=== PATIENT | male | born 1940 | race Caucasian/White ===

== ENCOUNTER 2016-02-24 07:42 | Day surgery (SDC) | payer OTHER ==
[2016-02-24] MEDS ORDERED: diphenhydrAMINE HCL 25 MG CAPSULE (FP) PO ONE (08:45)
[2016-02-24] MEDS ORDERED: ACETAMINOPHEN 325 MG TABLET (FP) PO ONE (08:45)
[2016-02-24] MEDS ORDERED: IMMUN GLOB G(IGG)/PRO/IGA 0-50 40 GM IVPB ONE (09:00)
[2016-02-24 13:33] VITALS: BP 123/70; PULSE 71; TEMP 97.3; BMI 27.3
== END 2016-02-24 13:41 | disposition home or self-care (01) ==
LOC: JINFUSION 07:42 → J7W 07:43 → JINFUSION 13:41
PROVIDERS: ATTEND Psychiatry & Neurology Neurology
DX: G62.89 Other specified polyneuropathies (principal)
CPT/HCPCS: 96365; 96366; J1459

== ENCOUNTER 2016-02-25 08:49 | Day surgery (SDC) | payer OTHER ==
[2016-02-25] MEDS ORDERED: ACETAMINOPHEN 325 MG TABLET (FP) ONE (09:12)
[2016-02-25] MEDS ORDERED: diphenhydrAMINE HCL 25 MG CAPSULE (FP) PO ONE (09:30)
[2016-02-25] MEDS ORDERED: ACETAMINOPHEN 325 MG TABLET (FP) PO ONE (09:30)
[2016-02-25] MEDS ORDERED: IMMUN GLOB G(IGG)/PRO/IGA 0-50 40 GM IVPB ONE (10:00)
[2016-02-25 14:30] VITALS: BP 113/70; BMI 27.3
[2016-02-25 14:33] VITALS: PULSE 65; TEMP 98.3
== END 2016-02-25 14:18 | disposition home or self-care (01) ==
LOC: JINFUSION 08:49 → J7W 08:49 → JINFUSION 14:18
PROVIDERS: ATTEND Psychiatry & Neurology Neurology
DX: G62.89 Other specified polyneuropathies (principal)
CPT/HCPCS: 96365; 96366; J1459

== ENCOUNTER 2016-02-26 07:51 | Day surgery (SDC) | payer OTHER ==
[2016-02-26] MEDS ORDERED: diphenhydrAMINE HCL 25 MG CAPSULE (FP) PO ONE (08:30)
[2016-02-26] MEDS ORDERED: ACETAMINOPHEN 325 MG TABLET (FP) PO ONE (08:30)
[2016-02-26] MEDS ORDERED: IMMUN GLOB G(IGG)/PRO/IGA 0-50 40 GM IVPB ONE (09:00)
== END 2016-02-26 12:59 | disposition home or self-care (01) ==
LOC: JINFUSION 07:51 → J7W 07:52 → JINFUSION 12:59
PROVIDERS: ATTEND Psychiatry & Neurology Neurology
DX: G62.89 Other specified polyneuropathies (principal)
CPT/HCPCS: 96365; 96366; J1459

== ENCOUNTER 2016-04-06 09:34 | Day surgery (SDC) | payer OTHER ==
[2016-04-03 13:20] VITALS: BMI 26.7
[2016-04-06] MEDS ORDERED: diphenhydrAMINE HCL 25 MG CAPSULE (FP) PO SCH (10:00)
[2016-04-06] MEDS ORDERED: ACETAMINOPHEN 325 MG TABLET (FP) PO SCH (10:15)
[2016-04-06] MEDS ORDERED: ACETAMINOPHEN 325 MG TABLET (FP) ONE ×3 (10:40→10:47)
[2016-04-06] MEDS ORDERED: IMMUNE GLOB,GAM CAPRYLATE(IGG) 40 GM IVPB ONE (10:45)
[2016-04-06 16:19] VITALS: BP 126/71; PULSE 62
[2016-04-06 16:20] VITALS: TEMP 97.7
== END 2016-04-06 16:15 | disposition home or self-care (01) ==
LOC: JINFUSION 09:34
PROVIDERS: ATTEND Psychiatry & Neurology Neurology
DX: G62.89 Other specified polyneuropathies (principal)
CPT/HCPCS: 96365; 96366; J1459

== ENCOUNTER 2016-04-07 09:02 | Day surgery (SDC) | payer OTHER ==
[2016-04-07 09:11] VITALS: BMI 27.3
[2016-04-07] MEDS ORDERED: diphenhydrAMINE HCL 25 MG CAPSULE (FP) PO ONE ×2 (10:00→15:05)
[2016-04-07] MEDS ORDERED: IMMUNE GLOB,GAM CAPRYLATE(IGG) 40 GM IVPB ONE (10:00)
[2016-04-07] MEDS ORDERED: ACETAMINOPHEN 325 MG TABLET (FP) PO ONE (10:00)
[2016-04-07 14:18] VITALS: BP 117/70; PULSE 70; TEMP 97.7
[2016-04-07] MEDS ORDERED: ACETAMINOPHEN 325 MG TABLET (FP) ONE (15:06)
== END 2016-04-07 14:05 | disposition home or self-care (01) ==
LOC: JASU-ENDO 09:02 → JINFUSION 09:02 → JASU-ENDO 14:05
PROVIDERS: ATTEND Psychiatry & Neurology Neurology
DX: G62.89 Other specified polyneuropathies (principal)
CPT/HCPCS: 96365; 96366; J1561; J1459

== ENCOUNTER 2016-04-08 08:33 | Day surgery (SDC) | payer OTHER ==
[~2016-04-08 08:33] MED LIST: ACETAMINOPHEN 325 MG TABLET (FP) PO ONE; diphenhydrAMINE HCL 25 MG CAPSULE (FP) PO ONE
[2016-04-08] MEDS ORDERED: ACETAMINOPHEN 325 MG TABLET (FP) ONE (08:45)
[2016-04-08] MEDS ORDERED: diphenhydrAMINE HCL 25 MG CAPSULE (FP) PO ONE (08:45)
[2016-04-08] MEDS ORDERED: IMMUNE GLOB,GAM CAPRYLATE(IGG) 40 GM IVPB ONE (09:00)
[2016-04-08 09:13] VITALS: BMI 27.2
[2016-04-08 12:55] VITALS: TEMP 98.3
[2016-04-08 14:12] VITALS: BP 110/61; PULSE 67
== END 2016-04-08 14:12 | disposition home or self-care (01) ==
LOC: JINFUSION 08:33
PROVIDERS: ATTEND Psychiatry & Neurology Neurology
DX: G62.89 Other specified polyneuropathies (principal)
CPT/HCPCS: 96365; 96366; J1561; J1459

== ENCOUNTER 2022-01-22 18:15 | Emergency (ER) | payer OTHER ==
[2022-01-22 18:30] VITALS: BP 154/85; PULSE 72; RESP 18; TEMP 97.8; BMI 26.1
[2022-01-22] MEDS ORDERED: ACETAMINOPHEN 500 MG TABLET (FP) PO ONE (19:21)
[2022-01-22] MEDS ORDERED: ACETAMINOPHEN 500 MG TABLET (FP) ONE (19:35)
[2022-01-22] MEDS ORDERED: LIDOCAINE 2%/EPINEPHRINE 1:100000 (50 ML MD VIAL) INF ONE (20:17)
[2022-01-22] MEDS ORDERED: LIDO 2%/EPI 1:200000 PRESRVFRE (20 ML SDVIAL) ONE (20:26)
[2022-01-22] MEDS ORDERED: CEPHALEXIN MONOHYDRATE 500 MG CAPSULE (UD) PO ONE (21:07)
[2022-01-22] MEDS ORDERED: CEPHALEXIN MONOHYDRATE 500 MG CAPSULE (UD) ONE (21:12)
[2022-01-22] MEDS ORDERED: LIDO 2%/EPI 1:200000 PRESRVFRE (20 ML SDVIAL) INF ONE (21:30)
== END 2022-01-22 21:16 | disposition home or self-care (01) ==
LOC: FER 18:15
PROC: 0HQ0XZZ Repair Scalp Skin, External Approach (ICD-10-PCS; principal; 2022-01-22)
DX: S01.01XA Laceration without foreign body of scalp, initial encounter (principal); W01.198A Fall on same level from slipping, tripping and stumbling with subsequent striking against other object, initial encounter
CPT/HCPCS: 70450-TC; 72125-TC; 99284-25